=== PATIENT | male | born 1950 | race Caucasian/White ===

== ENCOUNTER 2017-03-06 20:09 | Emergency (ER) | payer MEDICARE, OTHER ==
[2017-03-06 20:59] VITALS: TEMP 98.4
[2017-03-06 21:04] LABS: BASOPHILS % (AUTO) 1 % (0-3); EOSINOPHILS % (AUTO) 2 % (0-9); HEMATOCRIT 42 % (39-53); MEAN CORPUSCULAR HGB CONC 35.8 gm/dl (32.0-36.0); MONOCYTES % (AUTO) 8.8 % (0-12); NEUTROPHILS % (AUTO) 62.9 % (37-80)
[2017-03-06 21:09] LABS: MEAN CORPUSCULAR VOLUME 80 fL (80-100)
[2017-03-06 21:31] LABS: ALBUMIN 3.6 gm/dl (3.4-5.0); ALT 21 IU/L (14-63); CALCIUM 8.6 mg/dl (8.5-10.1); GLOM FILT RATE 104 mL/min (>60); POTASSIUM 3.6 mMol/L (3.5-5.1); SODIUM 136 mMol/L (136-145)
[2017-03-06 23:20] VITALS: BP 168/94; PULSE 67; RESP 20; O2SAT 97
== END 2017-03-06 21:45 | disposition home or self-care (01) | DRG 641 ==
LOC: ED 20:09
DX: E86.0 Dehydration (principal)
CPT/HCPCS: 36415; 71020; 80053; 84484; 85025; 93005; 99283; 99284

== ENCOUNTER 2018-03-12 20:58 | Emergency (ER) | payer MEDICARE, OTHER ==
[2018-03-12 20:58] VITALS: O2SAT 97
[2018-03-12 21:22] VITALS: BP 174/108; PULSE 66; RESP 18; TEMP 97
[2018-03-12] MEDS ORDERED: ACETAMINOPHEN 500 MG 500 MG TAB PO ONE (21:27)
[2018-03-12] MEDS ORDERED: ACETAMINOPHEN 500 MG 500 MG TAB ONE (21:29)
== END 2018-03-12 22:45 | disposition home or self-care (01) | DRG 605 ==
LOC: ED 20:58
DX: S70.02XA Contusion of left hip, initial encounter (principal); S20.211A Contusion of right front wall of thorax, initial encounter; S00.03XA Contusion of scalp, initial encounter; W18.2XXA Fall in (into) shower or empty bathtub, initial encounter
CPT/HCPCS: 73552; 99282; 99283

== ENCOUNTER 2018-03-13 03:11 | Emergency (ER) | payer MEDICARE, OTHER ==
[2018-03-13] MEDS ORDERED: PROCHLORPERAZINE EDISYLATE 5 MG/ML SOL IV ONE (03:16)
[2018-03-13] MEDS ORDERED: SODIUM CHLORIDE 0.9% 1000ML 1,000 ML IV ONE (03:16)
[2018-03-13] MEDS ORDERED: PROCHLORPERAZINE EDISYLATE 5 MG/ML SOL ONE (03:20)
[2018-03-13 03:43] LABS: HEMATOCRIT 50 % (39-53); HEMOGLOBIN 16.6 gm/dl (13.5-17.7); MEAN CORPUSCULAR HEMOGLOBIN 28.5 pg (27.0-32.0); MEAN CORPUSCULAR HGB CONC 33.1 gm/dl (32.0-36.0); MEAN CORPUSCULAR VOLUME 86 fL (80-100)
[2018-03-13 03:45] LABS: BILIRUBIN,TOTAL 0.4 mg/dl (0.2-1.0); CALCIUM 9.3 mg/dl (8.5-10.1); CARBON DIOXIDE 29.7 mEq/L (21-32); CREATININE 0.86 mg/dl (0.80-1.30); POTASSIUM 3.9 mMol/L (3.5-5.1); TOTAL PROTEIN 8.1 gm/dl (6.4-8.2)
[2018-03-13 03:56] LABS: BAND NEUTROPHILS % (MANUAL) 2 %; BASOPHILS % (MANUAL) 0 % (0-3); EOSINOPHILS % (MANUAL) 2 % (0-9); LYMPHOCYTES % (MANUAL) 40 % (10-50); MONOCYTES % (MANUAL) 9 % (0-12); NEUTROPHILS % (MANUAL) 47 % (37-80); NORMAL RBCS PRESENT
[2018-03-13 04:27] VITALS: RESP 20
[2018-03-13 04:29] VITALS: TEMP 97.8
[2018-03-13 04:30] VITALS: BP 167/91; PULSE 43; O2SAT 96
== END 2018-03-13 04:44 | disposition home or self-care (01) | DRG 90 ==
LOC: ED 03:11
DX: S06.0X9A Concussion with loss of consciousness of unspecified duration, initial encounter (principal); W18.2XXA Fall in (into) shower or empty bathtub, initial encounter
CPT/HCPCS: 70450; 80053; 85007; 85027; 96365; 96374; 99284; 99285; J0780